=== PATIENT | female | born 1985 | race Caucasian/White ===

== ENCOUNTER 2021-10-17 13:07 | Emergency (ER) | payer MEDICAID, OTHER ==
[~2021-10-17] VITALS: Ht 157.5 cm; Wt 87.5 kg
[2021-10-17 13:51] VITALS: BP 150/103
[2021-10-17] MEDS ORDERED: ACETAMINOPHEN ES 500 MG TABLET ONE (14:57)
[2021-10-17] MEDS ORDERED: IBUPROFEN 600 MG TABLET ONE (14:58)
--- NOTE | 2021-10-17 15:11 | NUR ---
URINE COLLECTED AND SENT TO LAB
[2021-10-17] MEDS ORDERED: IBUP-1957 PO (16:23)
[2021-10-17] MEDS: ACETAMINOPHEN ES 500 MG TABLET PO ONE (16:30)
[2021-10-17] MEDS: IBUPROFEN 600 MG TABLET PO ONE (16:30)
--- NOTE | 2021-10-17 16:38 | NUR ---
Patient discharged to home in stable condition. Written and verbal after care instructions given. Patient verbalizes understanding of instruction.
== END 2021-10-17 16:38 | disposition home or self-care (01) ==
LOC: ER 13:19
DX: S93.402A Sprain of unspecified ligament of left ankle, initial encounter (principal); S93.401A Sprain of unspecified ligament of right ankle, initial encounter; S19.9XXA Unspecified injury of neck, initial encounter; Z88.0 Allergy status to penicillin; Z88.1 Allergy status to other antibiotic agents; W01.0XXA Fall on same level from slipping, tripping and stumbling without subsequent striking against object, initial encounter; Y93.89 Activity, other specified; Y92.89 Other specified places as the place of occurrence of the external cause; Y99.8 Other external cause status
CPT/HCPCS: 72040-TC; 73610-TC; 84703-TC